=== PATIENT | male | born 1960 | race Asian ===

== ENCOUNTER → 2017-02-26 | Outpatient (CLI) | payer BC ==
[~2017-02-26] MED LIST: PRLSR20 PO
--- NOTE | 2017-02-26 15:03 | DIAGNOSTIC IMAGING REPORT ---
RIGHT HIP 2 VIEWS HISTORY: BUTTOCK PAIN, COMPARISON: None. FINDINGS: There is no fracture or dislocation. Soft tissues are unremarkable. Cartilage spaces are maintained for age. Mild spurring along the lateral aspect of the acetabulum. IMPRESSION: Minimal degenerative changes within the right hip. No fractures. Electronically signed by: Quoc Lee M.D. 02/26/2017 3:02 PM Dictated Date/Time: 02/26/2017 3:01 PM
--- NOTE | 2017-02-26 15:05 | DIAGNOSTIC IMAGING REPORT ---
SI JOINTS 3 OR MORE VIEWS CLINICAL HISTORY: Upper buttock pain. Myalgia. COMPARISON STUDY: No previous studies for comparison. FINDINGS: There is no evidence for SI joint diastases. There are no erosive changes to indicate an inflammatory sacroiliitis. No destructive lesions are visualized on conventional radiographic imaging. There is no SI joint fusion. IMPRESSION: No conventional radiographic evidence of an inflammatory sacroiliitis. Electronically signed by: Oli Sky M.D. 02/26/2017 3:04 PM Dictated Date/Time: 02/26/2017 3:03 PM
== END | disposition home or self-care (01) ==
LOC: C.RAD1850 14:34
PROVIDERS: ATTEND Family Medicine
DX: M79.1 Myalgia (principal)